=== PATIENT | female | born 1955 | race Caucasian/White ===

== ENCOUNTER 2022-03-02 12:14 | Emergency (ER) | payer BC, SELFPAY ==
--- NOTE | ~2022-03-02 | US_ITS ---
EXAMINATION: US pelvic complete DATE: 03/02/2022 17:51 INDICATION: Pelvic pain TECHNIQUE: Multiple transabdominal and endovaginal sonographic images of the pelvis were obtained. COMPARISON: CT from today FINDINGS: The uterus measures 6.6 x 4.9 x 5.5 cm. The endometrial complex measures 5 mm. The right ov regine measures 5.5 x 4.2 x 3.2 cm. There is a complex cystic area of the right adnexa measuring 4.3 x 2 .9 x 3.5 cm. There appear to be thin internal septations. The left ovary measures 4.1 x 2.8 x 2.5 cm. There is normal vascular flow in the ovaries. There is no free fluid in the pelvis. IMPRESSION: 1. Complex cystic area of the right adnexa with differential as previously described including small complex ovarian cyst versus hydrosalpinx. If the patient is clinically stable, sonographic follow-up is recommended. Reviewed, dictated and finalized at location F. IMPRESSION: 1. Complex cystic area of the right adnexa with differential as previously desc ribed including small complex ovarian cyst versus hydrosalpinx. If the patient is clinically stable, sonographic follow-up is recommended.
--- NOTE | ~2022-03-02 | CT_ITS ---
EXAMINATION: CT abdomen pelvis w con DATE: 03/02/2022 16:33 INDICATION: Abdominal pain TECHNIQUE: Computed tomography (CT) of the abdomen and pelvis was performed with 95 mL Omnipaque-300 intravenous contrast. Automated exposure control and iterative reconstruction technique were employed . The dose-length product was 187.71 mGy-cm. COMPARISON: None FINDINGS: Eventration along the diaphragm on both the left and right. Lung bases are clear. Heart size is tami l. No pericardial or pleural effusion. Liver, gallbladder, pancreas, spleen and bilateral adrenal gla nds are normal. Small region of cortical scarring at the upper pole of the right kidney. One-2 mm non obstructing stone at an upper pole calyx of the right kidney. Bilateral subcentimeter low-attenuation likely renal cysts which are too small to definitively characterize. Postoperative change of prior a ppendectomy with suture line at the tip the cecum couple adjacent surgical clips. Bowels are otherwis e unremarkable with no wall thickening or obstruction. Bladder and retroverted uterus are normal. 2 c m left adnexal cyst. 5.0 x 3.2 cm cystic lesion at the right adnexa which appears to represent a buil dup serpiginous hydrosalpinx although differential would include a mildly complex septated right ovar miriam cyst. No free intraperitoneal gas or fluid. No pathologically enlarged abdominal or pelvic lympha denopathy. Mild lumbar levo curvature with mild spondylosis. IMPRESSION: 1. 5.0 x 3.2 cm cystic-appearing lesion at the right adnexa which appears to represent a balled up se rpiginous fluid-filled hydrosalpinx with differential including complex ovarian cyst which would also raise the possibility for neoplasm. Consider pelvic ultrasound for further evaluation. 2. 1-2 mm nonobstructing right renal stone. Reviewed, dictated and finalized at location A. IMPRESSION: 1. 5.0 x 3.2 cm cystic-appearing lesion at the right adnexa which appears to re present a balled up serpiginous fluid-filled hydrosalpinx with differential inc luding complex ovarian cyst which would also raise the possibility for neoplasm . Consider pelvic ultrasound for further evaluation. 2. 1-2 mm nonobstructing right renal stone.
--- NOTE | ~2022-03-02 | XR_ITS ---
EXAMINATION: XR chest 1V portable INDICATION: Altered mental status, nausea and vomiting, history of hypertension TECHNIQUE: Portable AP chest at 1517 hours COMPARISON: None available FINDINGS: The lungs are free of acute opacities. No pleural effusion or pneumothorax. The heart size is normal. Calcified atherosclerosis is noted. There is moderate thoracic spondylosis. IMPRESSION: 1. No acute cardiopulmonary abnormality. Reviewed, dictated and finalized at location F.
--- NOTE | ~2022-03-02 | CT_ITS ---
EXAMINATION: CT brain wo con INDICATION: Nausea and vomiting, altered mental status COMPARISON: None TECHNIQUE: Standard unenhanced head CT. The dose-length product (DLP) was 529.67 mGy-cm. The mA was a djusted according to patient size. Iterative reconstruction technique was employed. FINDINGS: There is no intracranial hemorrhage, acute infarction, or abnormal mass lesion. The ventric les are normal. There is no abnormal mass effect or midline shift. The benítez-white matter differentiat ion is normal. The basal cisterns are patent. The orbits are normal. The paranasal sinuses, mastoids and calvarium are normal. IMPRESSION: 1. No acute intracranial abnormality. Reviewed, dictated and finalized at location F.
[2022-03-02 12:54] VITALS: BP 117/76; PULSE 102; RESP 18; TEMP 36.7; O2SAT 96
[2022-03-02 13:38] LABS: Basophils Absolute Auto 0.1 K/mm3 (0.0-0.1); Basophils Percent Auto 0.6 % (0.2-1.2); Eosinophils Percent Auto 0.2 % (0-4.4); Hemoglobin 14.9 g/dL (12.0-15.0); Immature Granulocyte Absolute 0.04 K/mm3 (0.00-0.031); Immature Granulocyte Percent A 0.4 % (0-0.5); Lymphocytes Percent Auto 20.1 % (18.3-44.2); Mean Corpuscular HGB Conc 34.7 g/dl (32-36); Mean Corpuscular Hemoglobin 33.5 pg (26-34); Mean Corpuscular Volume 96.6 fl (80-100); Mean Platelet Volume 8.4 fl (7.4-10.4); Monocytes Absolute Auto 0.5 K/mm3 (0.1-0.6); Monocytes Percent Auto 4.3 % (2.6-8.5); Neutrophils Absolute Auto 7.8 K/mm3 (1.3-6.7); Neutrophils Percent Auto 74.4 % (45.5-73.1); Platelet Count Result 330 k/mm3 (150-375); Red Blood Count 4.45 M/mm3 (4.2-5.4); Red Cell Distribution Width 13.1 % (11.5-14.5); White Blood Count 10.5 K/mm3 (4.5-10.0)
[2022-03-02 13:48] LABS: Alanine Aminotransferase 11 U/L (6-35); Albumin Level 4.5 g/dL (3.5-5.1); Alkaline Phosphatase 147 U/L (38-126); Anion Gap 19 mmol/L (8-16); Aspartate Amino Transferase 38 U/L (14-36); Bilirubin,Total 0.3 mg/dL (0.2-1.3); Blood Urea Nitrogen 14 mg/dL (7-17); Calcium 9.9 mg/dL (8.4-10.2); Carbon Dioxide 16 mmol/L (22-30); Chloride 101 mmol/L (98-107); Estimated CRCL calculation 80 ml/min; Estimated Glomerular Filt Rate > 60; Glucose 67 mg/dL (65-110); Lipase 85 U/L (23-300); Potassium 3.5 mmol/L (3.4-5.0); Sodium 136 mmol/L (137-145)
--- NOTE | 2022-03-02 14:51 | ED.NAVMDI ---
HPI - Nausea/Vomiting/Diarrhea General Chief complaint: Nausea/Vomiting/Diarrhea Stated complaint: not feeling well Time Seen by Provider: 03/02/22 14:50 History of Present Illness HPI Narrative: The patient is a 66-year-old female with a history of hypertension, Crohn's disease, recurrent pneumonia, presenting to the emergency department for evaluation of intermittent confusion, upper abdominal pain. Patient states that she has been feeling unwell over the past 72 hours with nausea daily. Patient is decreased oral intake secondary to this. She reports that she has had few episodes dry heaving, states that she has not eaten much to have any emesis contents. She denies any headache or vision changes but reports feeling intermittently confused. Yesterday, her sister who is a nurse in [place] was receiving nonsensical text messages from her and then when her sister called to check on her, the patient did not recognize her sister's voice. The patient's neighbor is also a registered nurse at [employer], and states that initially when she presented to the patient's house to check on her the patient was not sure who she was, but then after a moment did know who she was. The patient is now alert and oriented to person, place and to time. She denies any focal weakness or deficits. She has been ambulatory. She denies any recent fall or injury. She denies recent medication changes. She denies any drug use or alcohol use. Patient's abdominal pain is aching sensation in her upper abdomen without fullness. She denies any diarrhea, blood or mucus present in her stool. Patient reports she has a history of Crohn's disease or potentially ulcerative colitis but does not currently follow with a sixth grade teacher and is not on any immune modulating therapy. PT denies any headache, neck pain, fever. She denies any alcohol or drug use. Related Data Allergies Allergy/AdvReac Type Severity Reaction Status Date / Time No Known Allergies Allergy Unverified 12/11/14 20:13 Review of Systems Review of Systems: CONSTITUTIONAL: Denies fever, chills, or sweats. EYES: Denies visual changes, redness, or discharge. ENT: Denies rhinorrhea, congestion, sore throat, or otalgia. CARDIOVASCULAR: Denies chest pain, palpitations, or edema. RESPIRATORY: Denies cough or dyspnea. GASTROINTESTINAL: Reports abdominal pain, nausea and vomiting GENITOURINARY: Denies dysuria or hematuria. SKIN: Denies rash or itching. MUSCULOSKELETAL: Denies back pain, joint pain, or myalgia. NEUROLOGIC: Denies headache, numbness, or weakness. PT denies confusion. [facility] Social History Social History (Updated 03/02/22 @ 15:17 by Lucy Olvera MD) Smoking status: Never smoker Alcohol intake: never Substance use: never Living arrangements: alone Gender identity (if verbalized by the patient): Female Exam Narrative: GENERAL: Awake, alert, conversant HEAD: Normocephalic, atraumatic. EYES: PERRLA and EOMI. ENT: Nares clear, no rhinorrhea or epistaxis. Mucous membranes moist. NECK: Supple. CHEST: No respiratory distress, breathing even and non labored HEART: Regular rate, sinus rhythm ABDOMEN:Non distended, non tender in all 4 quadrants on exam, no rebound, rigidity or guarding EXTREMITIES: Normal range of motion. No edema. SKIN: Warm, dry, no rash. NEURO:No focal deficits. Alert and oriented x3. Finger to nose intact bilaterally. EOMs intact without nystagmus. No facial droop/asymmetry noted bilaterally. Grimace intact. Intact sensation in face. Hearing intact bilaterally. Shoulder shrug intact. Strength 5/5 bilateral upper extremities. Strength 5/5 bilateral lower extremities. Reflexes 2+ patellar. Heel to arteaga intact bilaterally. Patient is ambulatory with a narrow base gait steady, no ataxia. Course Vital Signs Vital signs: Vital Signs Temperature 36.7 C 03/02/22 12:54 Pulse Rate 102 H 03/02/22 12:54 Respiratory Rate 18 03/02/22 12:54 Bloo
[2022-03-02 15:36] LABS: Appearance Urine Clear (Clear); Bilirubin Urine Negative (Negative); Color Urine Yellow (Yellow); Glucose Urine UA Negative (Negative); Ketones Urine 3+ mg/dL (Negative); Leukocyte Esterase Ur Negative LEU/UL (Negative); Nitrate Urine Negative (Negative); Protein Urine Negative (Negative); Specific Grav Ur >= 1.030 (1.001-1.035); Urobilinogen Urine 0.2 mg/dL (<2.0); pH Urine 5.5 (5.0-9.0)
[2022-03-02 15:56] LABS: Add Urine Microscopic? YES; Blood Urine Trace-Intact (Negative)
[2022-03-02] MEDS: ONDANSETRON INJ 4 MG/2 ML VIAL IV PUSH (15:57)
[2022-03-02] MEDS: SODIUM CHLORIDE 0.9% IV 1,000 ML 999 ML IV CONT (15:57)
[2022-03-02 15:59] LABS: Mucus Urine Rare /lpf; RBC Urine 0-2 /hpf (0-2); Squamous Epithelial Cell Urine Occasional /hpf (Few); WBC Urine 0-3 /hpf
[2022-03-02 16:31] LABS: Creatine Kinase 37 U/L (30-135)
[2022-03-02 16:32] LABS: Ammonia < 9 umol/L (9-30)
[2022-03-02 16:34] LABS: Lactic Acid Reflex 0.9 mmol/L (0.7-2.0)
[2022-03-02 17:24] LABS: Thyroid Stimulating Hormone Reflex 0.215 uIU/mL (0.465-4.68)
[2022-03-02 17:51] VITALS: BP 139/78; PULSE 86; RESP 16; O2SAT 96
[2022-03-02 17:58] LABS: Free T4 Free Thyroxine Reflex 0.64 ng/dL (0.78-2.19)
[2022-03-02 19:09] VITALS: BP 122/76; PULSE 81; RESP 16; O2SAT 97
== END 2022-03-02 19:20 | disposition home or self-care (01) ==
PROVIDERS: Emergency Provider Emergency Medicine
DX: N94.89 Other specified conditions associated with female genital organs and menstrual cycle (principal); E86.0 Dehydration; R94.6 Abnormal results of thyroid function studies; R41.0 Disorientation, unspecified; N20.0 Calculus of kidney
CPT/HCPCS: 36415; 70450; 71045; 74177; 76856; 80053; 81001; 82140; 82550; 83605; 83690; 84439; 84443; 85025; 96374; 99284; J2405; J7030; Q9967